=== PATIENT | female | born 1995 ===

== ENCOUNTER 2022-04-11 15:25 | Outpatient (CLI) | payer OTHER | END 2022-04-11 16:52 | disposition home or self-care (01) | LOC: PRENATAL 15:25 | PROVIDERS: ATTEND Obstetrics & Gynecology Maternal & Fetal Medicine | DX: O35.9XX0 Maternal care for (suspected) fetal abnormality and damage, unspecified, not applicable or unspecified (principal); O35.3XX0 Maternal care for (suspected) damage to fetus from viral disease in mother, not applicable or unspecified; Z3A.20 20 weeks gestation of pregnancy ==

== ENCOUNTER 2022-07-19 08:46 | Outpatient (CLI) | payer OTHER | END 2022-07-19 11:45 | disposition home or self-care (01) | LOC: PRENATAL 08:46 | PROVIDERS: ATTEND Obstetrics & Gynecology Maternal & Fetal Medicine | DX: O26.849 Uterine size-date discrepancy, unspecified trimester (principal); O36.8199 Decreased fetal movements, unspecified trimester, other fetus; Z3A.34 34 weeks gestation of pregnancy ==

== ENCOUNTER 2022-08-24 09:06 | Inpatient (IN) | payer OTHER ==
[~2022-08-24] VITALS: Ht 160 cm; Wt 66.2 kg
[2022-08-24] MEDS ORDERED: PRENATAL 19 TA1 EAC2 PO (10:19)
[2022-08-24] MEDS ORDERED: FOLIC ACID0.8 M1 PO (10:20)
== END 2022-08-26 13:43 | disposition home or self-care (01) | DRG 807 ==
LOC: LDR 10:07 → OB/GYN 17:02
PROVIDERS: ADMIT Obstetrics & Gynecology; ATTEND Obstetrics & Gynecology
PROC: 10E0XZZ Delivery of Products of Conception, External Approach (ICD-10-PCS; principal; 2022-08-24)
PROC: 4A1HXCZ Monitoring of Products of Conception, Cardiac Rate, External Approach (ICD-10-PCS; 2022-08-24)
DX: O80 Encounter for full-term uncomplicated delivery (principal); Z37.0 Single live birth; Z3A.39 39 weeks gestation of pregnancy; Z20.822 Contact with and (suspected) exposure to COVID-19